=== PATIENT | female | born 1990 | race Caucasian/White ===

== ENCOUNTER 2021-11-22 07:09 | Emergency (ER) | payer OTHER ==
[2021-11-22 08:03] LABS: BASOPHIL 0.7 % (0-2); EOSINOPHIL 2.5 % (0-5); HCT 43.3 % (37.0-47.0); HGB 14.7 g/dl (12.5-16.0); LYMPHOCYTE 43.8 % (15-48); MCH 30.2 pg (25.0-31.0); MCHC 33.9 g/dL (32.0-36.0); MCV 88.9 fL (78.0-100.0); MONOCYTE 7.2 % (0-12); MPV 9.5 fL (6.0-9.5); NEUTROPHIL 45.7 % (41-80); NRBC 0; PLT 363 K/uL (150-400); RBC 4.87 M/uL (4.20-5.40); RDW 11.8 % (11.5-14.0); WBC 8.8 K/uL (4.0-10.5)
[2021-11-22 08:31] LABS: ALBUMIN 4.2 g/dL (3.4-5.0); BILIRUBIN - TOTAL 0.6 mg/dL (0.2-1.0); BUN/CREAT RATIO (CALC) 19.8 RATIO; CREATININE 0.86 mg/dL (0.51-0.95); POTASSIUM 3.8 mmol/L (3.5-5.1); TOTAL PROTEIN 8.2 g/dL (6.4-8.2)
[2021-11-22 08:45] LABS: CLARITY CLEAR (CLEAR); COLOR ORANGE (YELLOW)
[2021-11-22 08:51] LABS: BACTERIA 1+
[2021-11-22 08:52] LABS: URINARY RBC RARE
[2021-11-22] MEDS ORDERED: NORCO 5-325 TA1 EACH PO (09:37)
[2021-11-22] MEDS ORDERED: ONDANSETRON ODT4 MG PO (09:37)
== END 2021-11-22 09:44 | disposition home or self-care (01) ==
LOC: FER 07:09
PROVIDERS: Emergency Medicine
DX: N13.2 Hydronephrosis with renal and ureteral calculous obstruction (principal)
CPT/HCPCS: 36415; 80053; 81001; 84703; 85025; J1170; J1885; J2405